=== PATIENT | male | born 2000 | race Hispanic/Latino ===

== ENCOUNTER 2020-05-29 09:24 | Emergency (ER) | payer OTHER ==
[~2020-05-29] VITALS: Ht 175.3 cm; Wt 65.9 kg
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
[2020-05-29] MEDS ORDERED: CYCL-707 PO (10:48)
[2020-05-29] MEDS ORDERED: NAPR-837 PO (10:48)
[2020-05-29 10:55] VITALS: BP 142/83
== END 2020-05-29 11:11 | disposition home or self-care (01) ==
LOC: M ED 09:24
DX: S56.911A Strain of unspecified muscles, fascia and tendons at forearm level, right arm, initial encounter (principal); S33.5XXA Sprain of ligaments of lumbar spine, initial encounter; V43.12XA Car passenger injured in collision with other type car in nontraffic accident, initial encounter; Y92.481 Parking lot as the place of occurrence of the external cause; Y93.9 Activity, unspecified; Y99.9 Unspecified external cause status

== ENCOUNTER → 2022-07-22 | Outpatient (CLI) | payer OTHER ==
[~2022-07-22] MED LIST: CYCL-707 PO; NAPR-837 PO
== END ==
LOC: M RAD 07:52
PROVIDERS: ATTEND Physician Assistant
DX: S43.421A Sprain of right rotator cuff capsule, initial encounter (principal); M94.211 Chondromalacia, right shoulder; M25.411 Effusion, right shoulder; X58.XXXA Exposure to other specified factors, initial encounter; Y92.9 Unspecified place or not applicable; Y93.9 Activity, unspecified; Y99.9 Unspecified external cause status

== ENCOUNTER → 2022-08-05 | Outpatient (CLI) | payer OTHER | LOC: M PLARAD 13:32 | PROVIDERS: ATTEND Physician Assistant | DX: M25.551 Pain in right hip (principal) ==

== ENCOUNTER 2022-09-05 19:32 | Emergency (ER) | payer OTHER ==
[~2022-09-05] VITALS: Ht 172.7 cm; Wt 69.4 kg
[2022-09-05] MEDS ORDERED: ACETAMINOPHEN TAB 650MG DOSE (2X325MG) PO ONE (21:05)
[2022-09-05 21:30] VITALS: BP 145/74
== END 2022-09-05 21:45 | disposition home or self-care (01) ==
LOC: EDBD 19:32 → M ED 19:32
DX: M43.22 Fusion of spine, cervical region (principal); S80.11XA Contusion of right lower leg, initial encounter; S80.811A Abrasion, right lower leg, initial encounter; W10.9XXA Fall (on) (from) unspecified stairs and steps, initial encounter; Y92.133 Barracks on military base as the place of occurrence of the external cause; Z79.899 Other long term (current) drug therapy

== ENCOUNTER → 2022-10-03 | Outpatient (CLI) | payer OTHER | LOC: M PLAIMG 12:57 | PROVIDERS: ATTEND Physician Assistant | DX: M25.711 Osteophyte, right shoulder (principal); M75.81 Other shoulder lesions, right shoulder ==